=== PATIENT | male | born 1990 | race Caucasian/White ===

== ENCOUNTER 2017-10-10 17:40 | Inpatient (IN) | payer BC, OTHER ==
[~2017-10-10] VITALS: Ht 177.8 cm; Wt 75.7 kg
[2017-10-10 23:00] VITALS: BP 132/81
[2017-10-10] MEDS ORDERED: BUPRENORPHINE HCL 2 MG TAB.SUBL SL PRN (23:15)
[2017-10-10] MEDS ORDERED: MAG HYDROX/AL HYDROX/SIMETH 30 ML LIQUID UDC PO PRN (23:15)
[2017-10-10] MEDS ORDERED: MIRALAX 17 GM POWD.PACK PO PRN (23:15)
[2017-10-10] MEDS ORDERED: DICYCLOMINE HCL 20 MG TABLET PO PRN (23:15)
[2017-10-10] MEDS ORDERED: diphenhydrAMINE 50 MG CAPSULE PO PRN (23:15)
[2017-10-10] MEDS ORDERED: LORAZEPAM 2 MG/1 ML VIAL IM PRN (23:15)
[2017-10-10] MEDS ORDERED: ONDANSETRON ODT 4 MG TAB.RAPDIS SL PRN (23:15)
[2017-10-10] MEDS ORDERED: METHOCARBAMOL 750 MG TABLET PO PRN (23:15)
[2017-10-10] MEDS ORDERED: LORAZEPAM 1 MG TABLET PO PRN ×2 (23:15)
[2017-10-10] MEDS ORDERED: LOPERAMIDE HCL 2 MG CAPSULE PO PRN ×2 (23:15)
[2017-10-10] MEDS ORDERED: ONDANSETRON 4 MG/2 ML VIAL IM PRN (23:15)
[2017-10-10] MEDS ORDERED: HYDROXYZINE PAMOATE 25 MG CAPSULE PO PRN (23:15)
[2017-10-10] MEDS ORDERED: MAGNESIUM HYDROXIDE 30 ML LIQUID UDC PO PRN (23:15)
[2017-10-10 23:23] VITALS: BP 140/81
--- NOTE | 2017-10-10 23:30 | NUR ---
Pre-Assessment Note Pre-Assessment completed on the first floor, in intake office. Pt is a 26 year old male admitting to [facility] for Benzodiazepine and Opiate withdrawal. During assessment in intake, pt appears anxious, yet cooperative. VS: BP 132/81, Pulse 64, resp 16, SpO2 97% RA, temp 98. Pt educated on unit rules and policies: VS taken Q4H, kitchen only to be accessed via staff members and smoking privileges granted by nurse only. Pt also educated that any controlled substance brought upon admission will be wasted and not returned to pt upon discharge. Pt verbalized understanding of education. Admission process to be continued upon arrival to the unit.
[2017-10-10 23:40] LABS: *AMPHETAMINE, URINE POSITIVE (NEGATIVE); *BARBITURATE, URINE NEGATIVE (NEGATIVE); *CANNABINOID, URINE NEGATIVE (NEGATIVE); *COCCAINE, URINE NEGATIVE (NEGATIVE); *OPIATE, URINE POSITIVE (NEGATIVE); *PHENCYCLIDINE SCREEN,URINE NEGATIVE (NEGATIVE)
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
--- NOTE | 2017-10-11 00:10 | NUR ---
PRN Medication Administration Patient is verbalizing increased body aches and states "its probably from the drive out because I dont feel like I need detox medications yet." PRN Robaxin administered. Will continue to monitor.
[2017-10-11] MEDS ORDERED: CLONIDINE HCL 0.1 MG TABLET PO PRN (00:15)
[2017-10-11 00:40] VITALS: BP 137/89
--- NOTE | 2017-10-11 01:00 | NUR ---
PRN Medication Administration Patient is noted in bed sleeping. Breathing even and non labored. No signs of restlessness or discomfort noted. PRN Robaxin noted to be effective. Will continue to monitor.
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
[2017-10-11 04:00] VITALS: BP 122/83
--- NOTE | 2017-10-11 07:32 | NUR ---
End of Shift Patient is in bed sleeping. breathing even and non labored. Patient was admitted for opiate and benzo withdrawal. He will start a 5 day Subutex and 5 day Valium taper today. Skin is noted with an open scab to the right lower leg. Patient received PRN Robaxin for increased body aches with medication noted to be effective. Patient noted to sleep a total of 6 hours. Last noted COWS 5 CIWA 7. All needs attended to promptly. Will endorse to continue plan of care as ordered.
--- NOTE | 2017-10-11 07:45 | NUR ---
START OF SHIFT Pt is a 26 yr old male admitted on 10/10/17 for Opiate/Benzo withdrawal and is on 5 day Subutex and 5 day Valium taper starting today. Received report from nightclub manager nurse. Pt received Robaxin PRN during the night. Medication was effective. Last COWS score was 5 and CIWA score was 7 during the night. Pt slept for 6 hrs. Pt remains in bed sleeping with respirations even and unlabored. Skin is warm and moist to touch. P tis on fall precautions. Call light is within reach. Will continue to monitor.
[2017-10-11 08:00] VITALS: BP 130/63
--- NOTE | 2017-10-11 08:00 | NUR ---
COWS AND CIWA SCORE DEFERRED Pt is currently in bed sleeping with respirations even and unlabored. COWS and CIWA assessment if deferred at this time. Will continue to monitor.
[2017-10-11] MEDS ORDERED: LORAZEPAM 1 MG TABLET PO SCH (09:00)
[2017-10-11] MEDS: DIAZEPAM 10 MG TABLET PO SCH ×5 (09:00→22:00)
[2017-10-11] MEDS ORDERED: 5 DAY TAPER BUPRENORPHINE -SERENITY PROTOCOL SL PRN (09:00)
[2017-10-11] MEDS: MULTIVITAMINS,THERAPEUTIC TABLET PO SCH ×2 (09:00→10:26)
[2017-10-11] MEDS: BUPRENORPHINE HCL 2 MG TAB.SUBL SL SCH ×5 (09:00→22:00)
[2017-10-11] MEDS ORDERED: TUBERCULIN,PURIF.PROT.DERIV. 5 TU/0.1 ML TEST ID ONE (09:00)
[2017-10-11] MEDS ORDERED: 5 DAY TAPER VALIUM-SERENITY PROTOCOL PO PRN (09:00)
--- NOTE | 2017-10-11 10:25 | NUR ---
COWS AND CIWA ASSESSMENT Pt is c/o anxiety, agitation, chills, stuffy nose,abdominal cramping, yawning more than once, muscle aching, headache and sweats. Goose flesh is noted. COWS score is 15 and CIWA score is 13 at this time. Will continue to monitor.
[2017-10-11 12:00] VITALS: BP 136/90
[2017-10-11 13:01] LABS: BASOPHILS # (AUTO) 0.1 K/uL (0.0-8.0); BASOPHILS % (AUTO) 0.8 % (0.0-2.0); EOSINOPHILS # (AUTO) 0.2 K/uL (0.0-0.7); EOSINOPHILS % (AUTO) 3.2 % (0.0-7.0); HEMATOCRIT 43.3 % (36.7-47.1); HEMOGLOBIN 14.7 g/dL (12.5-16.3); LYMPHOCYTES # (AUTO) 1.2 K/uL (20.0-40.0); LYMPHOCYTES % (AUTO) 17.6 % (20.5-51.5); MEAN CORPUSCULAR HEMOGLOBIN 29.6 uug (23.8-33.4); MEAN CORPUSCULAR HGB CONC 34 g/dL (32.5-36.3); MEAN CORPUSCULAR VOLUME 87.1 fL (73.0-96.2); MONOCYTES # (AUTO) 0.4 K/uL (2.0-10.0); MONOCYTES % (AUTO) 5.3 % (0.0-11.0); NEUTROPHILS # (AUTO) 5.1 K/uL (1.8-8.9); NEUTROPHILS % (AUTO) 73.1 % (38.5-71.5); PLATELET COUNT (AUTO) 194 K/uL (152-348); RED BLOOD CELL COUNT(AUTO) 4.97 MIL/uL (4.06-5.63); WHITE BLOOD COUNT (AUTO) 6.9 K/uL (3.6-10.2)
[2017-10-11 13:13] LABS: ETHANOL < 3 MG/DL (0-0)
--- NOTE | 2017-10-11 13:39 | NUR ---
Client was prompted to attend twice daily group therapy sessions.
[2017-10-11 13:41] LABS: ALANINE AMINOTRANSFERASE 20 U/L (16-63); ALKALINE PHOSPHATASE 84 U/L (50-136); AMYLASE 49 U/L (25-115); ASPARTATE AMINOTRANSFERASE 13 U/L (15-37); BILIRUBIN,TOTAL 0.4 mg/dL (0.2-1.0); CARBON DIOXIDE 23 mmol/L (21-32); CHLORIDE 104 mmol/L (98-107); CREATININE 1.1 mg/dL (0.6-1.3); GLUCOSE 138 mg/dL (74-106); LIPASE 111 U/L (73-393); MAGNESIUM 1.8 mg/dL (1.8-2.4); TOTAL PROTEIN, SERUM 7.5 g/dL (6.4-8.2); UREA NITROGEN, BLOOD 14 mg/dL (7-18)
[2017-10-11] MEDS: GABAPENTIN 300 MG CAPSULE PO SCH ×2 (14:09→16:46)
[2017-10-11] MEDS: buPROPion XL 150 MG TAB.SR.24H PO SCH (14:09)
[2017-10-11 16:00] VITALS: BP 137/83
--- NOTE | 2017-10-11 19:00 | NUR ---
END OF SHIFT Pt is a 26 yr old male admitted on 10/10/17 for Opiate/Benzo withdrawal and is on 5 day Subutex and 5 day Valium taper, medication tia well. Pt has been cooperative with medication regimen and plan of care. Pt was observed attending group. Pt was c/o anxiety, agitation, muscle aches, headache, stuffy nose, chills/sweats and yawning. Pt was noted with fine tremors and goose flesh. No PRNs were given during the day. Last COWS score was 12 and CIWA score was 14 at 1600. Pt was encouraged increase fluid intake for hydration. Safety precautions observed. Call light is within reach. Endorsed to lead software development engineer nurse to continue with care.
--- NOTE | 2017-10-11 19:20 | NUR ---
Start of Shift Patient Received. Patient is noted in the activities room participating in a group meeting. Patient was started on a 5 day Subutex and 5 day Valium taper today. New orders for Seroquel for sleep and gabapentin TID. He was noted verbalizing increased lower back pain with Subutex noted to be effective in minimizing pain. He has been cooperative with group and social activities. Last noted COWS 12 and CIWA 14. All needs attended to promptly. Will continue plan of care as ordered.
[2017-10-11 20:30] VITALS: BP 140/91
[2017-10-11] MEDS: QUETIAPINE FUMARATE 200 MG TABLET PO SCH (22:00)
[2017-10-11] MEDS: METHOCARBAMOL 500 MG TABLET PO PRN (22:07)
--- NOTE | 2017-10-11 22:10 | NUR ---
PRN Medication Administration Patient verbalizing increased body aches. PRN Robaxin administered with routine medications. Will continue to monitor.
[2017-10-12 00:33] VITALS: BP 108/55
[2017-10-12 04:30] VITALS: BP 110/67
--- NOTE | 2017-10-12 07:04 | NUR ---
End of Shift Patient is in bed sleeping. Breathing even and non labored. Patient was started on a 5 day Subutex and 5 day Valium taper today. Patient verbalized increased lower back pain with PRN Robaxin administered and noted to be effective. Patient noted to sleep a total of 7 hours with last noted CIWA 16 and COWS 13. All needs attended to promptly. Will continue plan of care as ordered.
--- NOTE | 2017-10-12 07:34 | NUR ---
Start Of Shift: Patient is 26 yr old male who was admitted to [facility] on 8 for a medically supervised withdrawal from Opiates ( heroin IV), and benzodiazepines ( Xanax), he has been placed on a 5 day Subutex/ Valium taper and this is day 2. PRN medications given on PM shift : Robaxin for muscles aches/cramps, his last COWS was 13 and CIWA 16. he is in bed asleep at this time, breathing even and unlabored, side rails up x 2. Continue to follow MD plan of care and offer support as needed.
[2017-10-12 08:00] VITALS: BP 122/69
[2017-10-12] MEDS: METHOCARBAMOL 500 MG TABLET PO PRN ×2 (08:23→17:21)
[2017-10-12] MEDS: GABAPENTIN 300 MG CAPSULE PO SCH ×3 (08:23→17:21)
[2017-10-12] MEDS: IBUPROFEN 600 MG TABLET PO PRN ×2 (08:23→17:21)
[2017-10-12] MEDS: MULTIVITAMINS,THERAPEUTIC TABLET PO SCH (08:23)
[2017-10-12] MEDS: DIAZEPAM 10 MG TABLET PO SCH ×3 (08:23→21:04)
[2017-10-12] MEDS: BUPRENORPHINE HCL 2 MG TAB.SUBL SL SCH ×3 (08:24→21:04)
--- NOTE | 2017-10-12 08:25 | NUR ---
COWS 14 patients withdrawal symptoms include severe muscle aches/cramps, abdominal pain, diarrhea, lethargy, teary eyes, stuffy nose and decreased appetite
--- NOTE | 2017-10-12 08:30 | NUR ---
PRN Robaxin 750mg po and Motrin 600mg po given for reports of leg and back / muscle aches /spasms 10/09 will reassess
--- NOTE | 2017-10-12 08:30 | NUR ---
EMILIANO 16 Patient withdrawal symptoms include nasal stuffiness, teary eyes, decreased appetite, severe joint aches and lethargy
[2017-10-12] MEDS ORDERED: LORAZEPAM 1 MG TABLET PO SCH (09:00)
[2017-10-12] MEDS: buPROPion XL 150 MG TAB.SR.24H PO SCH (09:18)
--- NOTE | 2017-10-12 09:30 | NUR ---
PRN Reassess Patient states pain level is now 4/10 Robaxin 750mg po and Motrin 600mg po effective for relieving muscle aches and generalized pain continue to monitor
--- NOTE | 2017-10-12 11:35 | NUR ---
Nursing Note: Patient's urine drug screen came back positive for Amphetamines, asked Patient to clarify and he states that he was smoking Methamphetamine intermittently on a non daily basis, last smoked on 10/09/17.
[2017-10-12 12:00] VITALS: BP 123/60
--- NOTE | 2017-10-12 12:00 | NUR ---
COWS 14 CIWA 16 Patient's withdrawal symptoms include severe muscle aches, stuffy nose, chills, diaphoresis, lethargy, goose bumps and anxiety and agitation.
[2017-10-12 13:10] LABS: HEPATITIS B SURFACE AG Negative (Negative)
[2017-10-12 17:00] VITALS: BP 134/89
--- NOTE | 2017-10-12 17:20 | NUR ---
COWS 17 CIWA 16 Withdrawal symptoms include extreme anxiety and agitation, sweating, restless legs, stomach cramps, generalized body aches and lethargy.
--- NOTE | 2017-10-12 17:20 | NUR ---
PRN Medication Robaxin 750 MG PO and Motrin 600 MG PO given for reports of generalized body aches 10/09 will reassess and monitor
--- NOTE | 2017-10-12 18:20 | NUR ---
PRN Reassess Patient states pain level is now 4/10, Robaxin and Motrin effective, continue to monitor
--- NOTE | 2017-10-12 18:50 | NUR ---
End of Shift: Patient is a 26 yr old male who was admitted to [facility] on 10/10/17 for a medically supervised withdrawal from Opiates ( Heroin IV) and benzodiazepines ( Xanax). He has been placed on a 5 day Valium / Subutex taper and this is day 2 and he is tolerating it well. His withdrawal symptoms today have included severe generalized body aches, chills, diaphoresis, stuffy nose, teary eyes, high anxiety and agitation. Today he had a fluid intake of 1500 ML, 3 voids and 0 BM. His last COWS was 17 and CIWA 16 @ 1720. Continue to follow MD plan of care and offer support as needed. Endorsed to shift manager.
--- NOTE | 2017-10-12 19:25 | NUR ---
START OF SHIFT Patient is a 26-year-old male admitted on 10/10/17 for benzodiazepine and opiate withdrawal. Patient is currently on a 5-day Valium taper and 5-day Subutex taper, tolerating well. Patients last COWS was 17, last CIWA was 16. Per endorsement, patient received PRN Motrin x2 today and PRN Robaxin x2 today for generalized body aches. Upon assessment, patient is alert and oriented x4. Patient participates in group and is cooperative. Patient complains of lower back aches 7/10 on pain scale, stuffy nose, yawning and mild stomach cramps. Patient reports difficult sleeping and is requesting scheduled Seroquel later when he is ready to sleep. Patient is on fall and seizure precautions, denies history of seizure. Safety measures in place, side rails up x2, bed locked in low position, call light within reach. Will continue to monitor.
[2017-10-12 20:00] VITALS: BP 142/88
--- NOTE | 2017-10-12 20:00 | NUR ---
COWS/CIWA Patient has a COWS score of 18 and a CIWA score of 18. He is currently complaining of headache, lower backache, chills and sweats, stuffy nose, stomach cramps and mild nausea. Will administer appropriate meds; will continue to monitor.
[2017-10-12] MEDS: QUETIAPINE FUMARATE 200 MG TABLET PO SCH (21:00)
[2017-10-12] MEDS: ACETAMINOPHEN 325 MG TABLET PO PRN (21:04)
--- NOTE | 2017-10-12 21:04 | NUR ---
PRN TYLENOL Patient complains of lower backache 7/10 on pain scale. PRN Tylenol 650mg given PO. Safety measures in place, side rails up x2, bed locked in low position, call light within reach. Will monitor for effectiveness.
--- NOTE | 2017-10-12 22:04 | NUR ---
PRN TYLENOL REASSESSMENT Patient reports that lower backache is now 2/10 on pain scale. PRN Tylenol effective. Safety measures in place, call light within reach. Will continue to monitor.
[2017-10-13] VITALS: BP 110/57
--- NOTE | 2017-10-13 | NUR ---
COWS & CIWA DEFERRED COWS and CIWA deferred at this time due to patient sleeping; to be assessed and scored while patient is awake. Patient's BP is 110/57, HR 73, RR 16/min, respirations even and unlabored. Safety measures in place, side rails up x2, bed locked in low position, call light within reach. Will continue to monitor.
--- NOTE | 2017-10-13 01:30 | NUR ---
COWS & CIWA @ 0130 Patient is awake and requesting chips and a sandwich. Current COWS is 11, current CIWA is 13. Patient reports mild body aches and mild headache. He is still reporting anxiety but is less agitated and less restless. Safety measures in place, side rails up x2, bed locked in low position, call light within reach. Will continue to monitor.
--- NOTE | 2017-10-13 04:00 | NUR ---
VITALS REFUSED, COWS & CIWA DEFERRED Patient refused 4am vitals. COWS and CIWA deferred due to patient sleeping; to be assessed and scored while patient is awake. Safety measures in place, side rails up x2, bed locked in low position, call light within reach. Will continue to monitor.
--- NOTE | 2017-10-13 07:22 | NUR ---
END OF SHIFT Patient is a 26-year-old male admitted on 10/10/17 for benzodiazepine and opiate withdrawal. Patient is currently on a 5-day Valium taper and 5-day Subutex taper, today will be day 3; tolerating well. Patients last COWS was 11, last CIWA was 13. Patient received PRN Tylenol for lower backache; noted as effective. Patient slept for 7 hours, total intake of 1,006mL, void x2, stool x0. Patient is on fall and seizure precautions, denies history of seizure. Safety measures in place, side rails up x2, bed locked in low position, call light within reach. Will endorse to day shift.
[2017-10-13 08:00] VITALS: BP 129/84
--- NOTE | 2017-10-13 08:15 | NUR ---
START OF SHIFT: Received Pt A/O x 4. He presents with anxious mood and restricted affect. He c/o anxiety,body aches,fatigue,sweats,intermittent stomach cramps,stuffy nose and restlessness. He is fidgety. COWS 10 CIWA 12. Subutex/Valium taper in progress to manage s/s of w/d. Encouraged increased fluids to assist in facilitating detox process. Encouraged group attendance to improve coping skills and prevent relapse. Will continue to monitor and offer support.
[2017-10-13] MEDS: GABAPENTIN 300 MG CAPSULE PO SCH ×3 (08:22→16:48)
[2017-10-13] MEDS: DIAZEPAM 5 MG TABLET PO SCH ×4 (08:22→21:23)
[2017-10-13] MEDS: MULTIVITAMINS,THERAPEUTIC TABLET PO SCH (08:22)
[2017-10-13] MEDS: buPROPion XL 150 MG TAB.SR.24H PO SCH (08:22)
[2017-10-13] MEDS ORDERED: LORAZEPAM 1 MG TABLET PO SCH (09:00)
[2017-10-13] MEDS ORDERED: BUPRENORPHINE HCL 2 MG TAB.SUBL SL SCH (09:00)
[2017-10-13 12:00] VITALS: BP 146/90
--- NOTE | 2017-10-13 12:10 | NUR ---
COWS 10 CIWA 12 Pt presents anxious and c/o restlessness,anxiety,sweats,intermittent stomach cramps. body aches and irritability. He states he is sensitive to sound and light.
[2017-10-13] MEDS: BUPRENORPHINE HCL 2 MG TAB.SUBL SL SCH ×2 (14:14→21:23)
[2017-10-13 16:00] VITALS: BP 145/90
--- NOTE | 2017-10-13 16:15 | NUR ---
COWS 12 CIWA 14 He is restless and fidgety with clammy skin. He reports intermittent sweats ,chills and stomach cramps. He c/o anxiety,body aches,and irritability.
--- NOTE | 2017-10-13 19:19 | NUR ---
END OF SHIFT: Pt continues on Valium/Subutex taper. Last CIWA 14 COWS 12. He reports anxiety,sweats,body aches,fatigue and irritability. He states detox meds are effective. He attended groups and interacted with peers. He was compliant with increased fluids. Will pass shift report to oncoming night nurse.
--- NOTE | 2017-10-13 19:30 | NUR ---
Start of Shift Pt admitted 10/10/17 for medically managed withdrawal from Heroin and Xanax on a 5 day Subutex and 5 day Valium taper. Pt is a full code, with NKA's and on a regular diet. Pt found in room, appears disheveled with uncombed hair, odor in room, flat affect with loud speech, avoidant eye contact, hand tremors. Pt appears depressed/sad/worried. Frequent smoking breaks major coping/defense mechanism. Pt presents with c/o back pain 11/09, H/A, anxiety and agitation, yawning, stuffy nose. Denies SI/HI, A/V/T hallucinations. Pt educated about stress management techniques, encouraged to clean room and perform PM ADL's, personal care. Full safety measures remain in place (fall/seizure). Will monitor for duration of shift for any s/sx's of withdrawal or distress, and promptly attend to.
[2017-10-13 20:00] VITALS: BP 160/68
--- NOTE | 2017-10-13 20:00 | NUR ---
COWS/CIWA Assessment COWS score increase of 2, from 12 at 1600 to 14 at 2000 hours. increase due to increases in scores of "sweating" and "yawning". All other scores remain unchanged, with HR > 100, restlessness, pupils normal size, B/A's, some nasal congestion/tearing, stomach cramps, hand tremors to touch, anxiety apparent, and no piloerection present. CIWA score 18 at 2000 hours, increase of 4 from score of 14 at 1600 hours. Differences are increase in nausea/stomach cramping, sweats, anxiety. Other factors including tremors (2), restlessness (4), A/V/T hallucinations (1) remain unchanged from 1600.
[2017-10-13] MEDS: METHOCARBAMOL 500 MG TABLET PO PRN (21:21)
--- NOTE | 2017-10-13 21:21 | NUR ---
PRN Med Robaxin 750mg PO given for back pain, 11/09. HR 106, BP 160/68, SaO2 94%. Will continue to monitor and reassess in 1 hour.
[2017-10-13] MEDS: QUETIAPINE FUMARATE 200 MG TABLET PO SCH (21:22)
[2017-10-13] MEDS: CLONIDINE HCL 0.1 MG TABLET PO PRN (21:22)
--- NOTE | 2017-10-13 21:22 | NUR ---
Catepres 0.1mg PO given for anxiety, BP 160/68. Will continue to monitor and reassess in 1 hour
--- NOTE | 2017-10-13 22:21 | NUR ---
PRN Reassessment Robaxin 750mg PO given 1 hour prior for back pain, 11/09. At present pt is sleeping. Med effective.
--- NOTE | 2017-10-13 22:22 | NUR ---
PRN Reassessment Catepres 0.1mg PO given 1 hour prior for anxiety/BP 160/68. At present pt sleeping, arousable to voice and reporting decreased anxiety. BP 148/65. Med effective. Will continue to monitor, promptly attending to all s/sx's w/d or distress.
--- NOTE | 2017-10-14 | NUR ---
VS's COWS/CIWA Deferred Midnight VS's, COWS and CIWA deferred r/t pt sleeping/refused. RR 14, even and nonlabored. Will continue to monitor, promptly attending to all s/sx's w/d or distress.
[2017-10-14 04:00] VITALS: BP 109/49
--- NOTE | 2017-10-14 04:00 | NUR ---
COWS/CIWA Deferred 0400 VS's obtained/stable, COWS and CIWA deferred r/t pt sleeping/refused. Will continue to monitor, promptly attending to all s/sx's w/d or distress.
--- NOTE | 2017-10-14 07:14 | NUR ---
Start of Shift Endorsement given to day nurse. Pt admitted 10/10/17 for medically managed withdrawal from Heroin and Xanax on a 5 day Subutex and 5 day Valium taper. Pt is a full code, with NKA's and on a regular diet. Pt received Catepres 0.1mg PO and Robaxin 750mg PO as PRN's for the shift. Pt slept for 9 hours, with 800 mls intake and 1 voids. Last COWS was 14, CIWA 18 at 2000 hours. Mood remains depressed, affect flat with avoidant eye contact. Room remains disheveled and odorous, pt did not straighten, and personal hygiene remains poor with odorous breath, flushed face and dirty fingernails, remains in dirty clothing and unshaven. Full safety measures remain in place.
[2017-10-14 08:00] VITALS: BP 104/60
--- NOTE | 2017-10-14 08:20 | NUR ---
START OF SHIFT: Received Pt. laying in bed with eyes closed asleep. Respirations even and unlabored. Bed locked and low. Call pritchard in reach.
[2017-10-14] MEDS ORDERED: LORAZEPAM 1 MG TABLET PO SCH (09:00)
[2017-10-14] MEDS: BUPRENORPHINE HCL 2 MG TAB.SUBL SL SCH ×3 (10:30→21:09)
[2017-10-14] MEDS: DIAZEPAM 5 MG TABLET PO SCH ×3 (10:30→21:08)
[2017-10-14] MEDS: MULTIVITAMINS,THERAPEUTIC TABLET PO SCH (10:30)
[2017-10-14] MEDS: GABAPENTIN 300 MG CAPSULE PO SCH ×3 (10:30→17:00)
--- NOTE | 2017-10-14 10:35 | NUR ---
Pt is A/O x 4. He presents with blunted affect and subdued mood. He c/o anxiety,body aches,fatigue,sweats,intermittent stomach cramps,stuffy nose and restlessness. He is fidgety. COWS 11 CIWA 13 Subutex/Valium taper in progress to manage s/s of w/d. Late medication administered. MD made aware. Pt Encouraged increased fluids to assist in facilitating detox process. Encouraged group attendance to improve coping skills and prevent relapse. Will continue to monitor and offer support.
[2017-10-14] MEDS: buPROPion XL 150 MG TAB.SR.24H PO SCH (11:10)
[2017-10-14 12:00] VITALS: BP 120/72
--- NOTE | 2017-10-14 12:16 | NUR ---
COWS 10 CIWA 13 fine tremors observed. He is fidgety./ He reports anxiety,body aches,sweats and chills intermittently. He reports restlessness.
[2017-10-14 16:00] VITALS: BP 142/85
--- NOTE | 2017-10-14 16:00 | NUR ---
COWS 11 CIWA 13 fine tremors observed. He is fidgety. He reports anxiety,agitation, body aches,sweats and chills intermittently.
--- NOTE | 2017-10-14 18:58 | NUR ---
END OF SHIFT: Pt continues on Valium/Subutex taper. Last CIWA 11 COWS 13. He reports anxiety,body aches,fatigue and irritability. He presents with irritable mood. He attended groups and interacted with peers. He was compliant with increased fluids. Will pass shift report to oncoming night nurse.
--- NOTE | 2017-10-14 19:30 | NUR ---
Start of Shift Pt admitted 10/10/17 for medically managed withdrawal from Heroin and Xanax. Pt listed as a full code, with NKAs and on a regular diet. Pt is on a 5 day Subutex and a 5 day Valium taper. Pt found disheveled, with uncombed hair. Room is in disarray and odorous. Affect is flat and blunt, mood depressed and angry, blocking. Irritable and uncooperative. Report from day nurse of Pt almost leaving AMA after message from girlfriend conveyed to him. Pt refusing to talk at moment, but c/o lower back pain made. Pt agitated and fidgety. Full safety measures remain in place with bed in lowest position, locked with both side rails up x 2, call pritchard within reach and frequent rounding. Will monitor pt for duration of shift for any s/sxs of distress or w/d and promptly attend.
[2017-10-14 20:00] VITALS: BP 132/89
--- NOTE | 2017-10-14 20:00 | NUR ---
COWS/CIWA Assessment COWS 14, amb sweats, face flushed, restlessness, pupils larger than normal, B/A's, nasal congestion, yawning, and anxiety CIWA 14, amb hand tremors, nausea, diaphoresis, anxiety and agitation, H/A,
[2017-10-14] MEDS: CLONIDINE HCL 0.1 MG TABLET PO PRN (21:08)
[2017-10-14] MEDS: METHOCARBAMOL 500 MG TABLET PO PRN (21:08)
--- NOTE | 2017-10-14 21:08 | NUR ---
PRN Meds Clonidine 0.1mg PO for anxiety and Robaxin 750mg PO for lower back pain 7/10 given. Will continue to monitor, and reassess in 1 hour.
[2017-10-14] MEDS: QUETIAPINE FUMARATE 200 MG TABLET PO SCH (21:09)
--- NOTE | 2017-10-14 22:08 | NUR ---
PRN Reassessment Clonidine 0.1mg PO for anxiety and Robaxin 750mg PO for lower back pain 7/10 given 1 hour prior. At present pt sleeping, RR 14, even and nonlabored. Meds effective.
[2017-10-15] VITALS: BP 109/64
--- NOTE | 2017-10-15 | NUR ---
Midnight Rounds VS's obtained/stable, COWS and CIWA deferred r/t pt sleeping/refused. RR 16, even and nonlabored. Will continue to monitor for all s/sx's distress or w/d, and promptly attend.
--- NOTE | 2017-10-15 04:00 | NUR ---
VS's, COWS/CIWA Deferred 0400 VS's, COWS/CIWA deferred r/t pt sleeping/refused. RR 14, even and nonlabored. Will continue to monitor and promptly attend to all s/sx's w/d or distress.
--- NOTE | 2017-10-15 07:18 | NUR ---
End of Shift Endorsement given to [facility] day nurse. Pt admitted 10/10/17 for medically managed withdrawal from Opiates and Benzodiazepines remains on 5 day Subutex and Valium tapers started . Pt slept for 10 hours, with 1535 mls intake and 3 voids during shift. Pt remains irritable, labile at times. Report from prior nurse including news he received from girlfriend she was not in detox herself, pt refuses to discuss topic. Pt stating dr was supposed to increase his Subutex to 4mg for evening meds. Pt also observed by nurse and [employer] during evening meds to watch for cheeking of any medications-none noted. Affect worried/agitated with racing thoughts, anxious. Expression preoccupied and angry with avoidant eye contact. Garbage around room, food on bed, pt remains disheveled with dirty clothes. pt encouraged to straighten with no results. Lower back pain with w/d s/sxs consistent. Full safety measures remain in place.
--- NOTE | 2017-10-15 07:30 | NUR ---
Start of Shift Patient is a 26 yr old male who was admitted to [facility] on 10/10/17 for a medically supervised withdrawal from Opiates ( Heroin) and benzodiazepines (Xanax), he continue on a 5 day Subutex/Valium taper which has been well tolerated. PRN meds given on PM shift : Clonidine and Robaxin. He slept for 10 + hours and is currently asleep in bed at this time, breathing even and unlabored, side rails up x2. His last COWS was 14 and CIWA 14. Continue to follow MD plan of care and offer support as needed.
[2017-10-15 08:00] VITALS: BP 111/52
[2017-10-15] MEDS ORDERED: BUPRENORPHINE HCL 2 MG TAB.SUBL SL SCH (09:00)
[2017-10-15] MEDS ORDERED: LORAZEPAM 1 MG TABLET PO SCH (09:00)
--- NOTE | 2017-10-15 09:00 | NUR ---
COWS 11 /CIWA 13 Patients withdrawal symptoms include diaphoresis, chills, runny nose, lethargy, generalized body aches/spasms, bilateral hand tremors, anxiety and agitation.
--- NOTE | 2017-10-15 09:00 | NUR ---
PRN Robaxin/Motrin Robaxin 750 mg po and Motrin 600 MG PO given for reports of severe generalized body aches and cramps 7/10 pain level. will reassess
[2017-10-15] MEDS: GABAPENTIN 300 MG CAPSULE PO SCH ×3 (09:09→17:02)
[2017-10-15] MEDS: buPROPion XL 150 MG TAB.SR.24H PO SCH (09:09)
[2017-10-15] MEDS: MULTIVITAMINS,THERAPEUTIC TABLET PO SCH (09:09)
[2017-10-15] MEDS: METHOCARBAMOL 500 MG TABLET PO PRN ×2 (09:09→17:02)
[2017-10-15] MEDS: DIAZEPAM 5 MG TABLET PO SCH ×2 (09:09→20:54)
[2017-10-15] MEDS: IBUPROFEN 600 MG TABLET PO PRN ×2 (09:10→20:54)
--- NOTE | 2017-10-15 10:00 | NUR ---
PRN Reassess Patient states Medications were effective in reducing his body aches pain to 4/10 will continue to monitor
--- NOTE | 2017-10-15 11:56 | NUR ---
COWS 12/ CIWA 14 Patient presents with agitation, restlessness, restless legs, severe body aches and irritability.
[2017-10-15 12:00] VITALS: BP 124/72
[2017-10-15] MEDS: CLONIDINE HCL 0.1 MG TABLET PO PRN (13:29)
[2017-10-15] MEDS: ACETAMINOPHEN 325 MG TABLET PO PRN (13:29)
--- NOTE | 2017-10-15 13:30 | NUR ---
PRN Tylenol/Clonidine Tylenol 650 MG PO given for complaints of back pain 09/09 Clonidine 0.1MG Po given for anxiety, agitation and restlessness. Will continue to monitor
--- NOTE | 2017-10-15 14:30 | NUR ---
PRN Reassess patient states he feels less anxious, clonidine effective Tylenol mildly effective on joint pain, pain level 4/10 will continue to assess and monitor
--- NOTE | 2017-10-15 15:55 | NUR ---
14 Patient presents with withdrawal symptoms that include severe joint and muscle aches, stuffy nose, increased agitation and irritability, restlessness, diaphoresis and chills.
[2017-10-15 16:00] VITALS: BP 124/73
--- NOTE | 2017-10-15 17:00 | NUR ---
PRN Robaxin Robaxin 750 MG PO given for back pain 10/09, will reassess
--- NOTE | 2017-10-15 17:49 | NUR ---
Spoke with client about staying for the full course of treatment rather than leave early. After some discussion he agreed to leave at the planned discharge time. Also, spoke with client prompting him to attend groups twice daily while he is here.
--- NOTE | 2017-10-15 18:57 | NUR ---
End Of Shift : Patient is a 26 yr old male who was admitted to [facility] on 10/10/17 for a medically supervised withdrawal from opiates ( heroin IV) and Benzodiazepines ( Xanax). He is on a 5 day Subutex/ 5 day Valium taper and this is day 5. PRN medications required on this shift : Robaxin x2, Motrin, Tylenol and Clonidine. He presents with a flat irritable affect and his withdrawal symptoms include severe joint aches, runny nose, abdominal cramps, restlessness, lethargy , diaphoresis and chills. He has attended groups today and is interacting with his peers. He had a fluid intake of 1700 ML, 2 Voids and 0 BM. Last COWS 12 and CIWA 14 @ 1600. Continue to follow MD plan of care and offer support as needed. Endorsed to mold shifter.
--- NOTE | 2017-10-15 19:30 | NUR ---
START OF SHIFT NOTE RECEIVED REPORT FROM DAY SHIFT NURSE. PATIENT IS A 26 YEAR OLD MALE ADMITTED FOR OPIATE AND BENZO WITHDRAWAL. PATIENT IS ON 5TH DAY OF HIS 5 DAY SUBUTEX AND 5 DAY VALIUM TAPER. PATIENT WAS C/O BODY ACHES DURING THE DAY. PATIENT WAS GIVEN PRN ROBAXIN X 2, MOTRIN , CLONIDINE AND TYLENOL. LAST COWS 12 AND CIWA 14. PATIENT IN THE GROUP AT THIS TIME. BED UNMADE AND CLOTHES THROWN ON FLOOR . SAFETY MEASURES IN PLACE. WILL CONTINUE TO MONITOR
[2017-10-15 20:00] VITALS: BP 138/88
--- NOTE | 2017-10-15 20:00 | NUR ---
COWS AND CIWA ASSESSMENT PATIENT PRESENTS WITH FLAT AFFECT, EYE AVOIDANT, DISHEVELED, MODERATE ANXIETY, RESTLESS, FIDGETY , IRRITABLE, SWEATS, DIFFICULTY CONCENTRATING, EASILY DISTRACTED AND WAS C/O LOWER BACK PAIN AND HEADACHE. COWS 11 AND CIWA 11.
[2017-10-15] MEDS: QUETIAPINE FUMARATE 200 MG TABLET PO SCH (20:54)
--- NOTE | 2017-10-15 20:54 | NUR ---
PRN MOTRIN ADMINISTRATION PATIENT C/O LOWER BACK PAIN. WILL MONITOR FOR EFFECTIVENESS
--- NOTE | 2017-10-15 21:54 | NUR ---
PRN MOTRIN RE-ASSESSMENT PATIENT WALKING ALONG THE HALLWAY AND SOCIALIZING WITH OTHER PATIENT. PATIENT STATES MOTRIN HELPFUL, PAIN TOLERABLE AT THIS TIME. WILL CONTINUE TO MONITOR.
--- NOTE | 2017-10-16 07:08 | NUR ---
END OF SHIFT NOTE PATIENT SLEPT 6 HOURS. FLUID INTAKE 710 ML. VOIDED X 2. NO BM. PATIENT CONTINUE ON SUBUTEX AND VALIUM TAPER, TOLERATED WELL AND NO ADVERSE REACTION PATIENT PRESENTS WITH FLAT AFFECT, EYE AVOIDANT, DISHEVELED, MODERATE ANXIETY, RESTLESS, FIDGETY , IRRITABLE, DIFFICULTY CONCENTRATING, EASILY DISTRACTED AND WAS C/O LOWER BACK PAIN AND HEADACHE. PATIENT WAS GIVEN PRN MOTRIN FOR PAIN ON LOWER BACK, EFFECTIVE. PATIENT COMPLIANT WITH MEDICATION AND TREATMENT PLAN. PATIENT SOCIALIZING WITH OTHER PATIENT . SEEN BY DR. CRAIG DURING SHIFT WITH NO NEW ORDER. SAFETY MEASURES IN PLACE. WILL CONTINUE TO MONITOR. LAST COWS AND CI.
[2017-10-16 08:00] VITALS: BP 139/82
--- NOTE | 2017-10-16 08:20 | NUR ---
START OF SHIFT: Pt is A/O x 4. He presents with blunted affect and apathetic mood. He c/o anxiety,body aches,fatigue and restlessness. He is fidgety. COWS 8 CIWA 8 Subutex/Valium taper completed yesterday. Pt Encouraged increased fluids to assist in facilitating detox process. Encouraged group attendance to improve coping skills and prevent relapse. Will continue to monitor and offer support.
[2017-10-16] MEDS: GABAPENTIN 300 MG CAPSULE PO SCH ×3 (08:28→16:55)
[2017-10-16] MEDS: MULTIVITAMINS,THERAPEUTIC TABLET PO SCH (08:28)
[2017-10-16] MEDS: buPROPion XL 150 MG TAB.SR.24H PO SCH (10:03)
[2017-10-16 12:00] VITALS: BP 136/82
--- NOTE | 2017-10-16 12:32 | NUR ---
COWS 8 CIWA 8 . Pt c/o mild body aches,intermittent anxiety,restlessness and low energy.
--- NOTE | 2017-10-16 14:20 | NUR ---
Client was prompted to attend twice daily group counseling sessions.
[2017-10-16 16:00] VITALS: BP 145/93
--- NOTE | 2017-10-16 16:05 | NUR ---
COWS 7 CIWA 8 Pt c/o body aches,anxiety,sweats and fatigue.
--- NOTE | 2017-10-16 19:10 | NUR ---
END OF SHIFT: Pt completed Valium/Subutex taper and discharge scheduled for tomorrow in AM. Last CIWA 8 COWS 7. He reports anxiety,body aches and fatigue. He attended groups and interacted with peers. He was compliant with increased fluids. Will pass shift report to oncoming night nurse
--- NOTE | 2017-10-16 19:30 | NUR ---
START OF SHIFT NOTE RECEIVED REPORT FROM DAY SHIFT NURSE. PATIENT IS A 26 YEAR OLD MALE ADMITTED FOR OPIATE/BENZO WITHDRAWAL. PATIENT COMPLETED 5 DAY SUBUTEX AND 5 DAY VALIUM TAPER, TOLERATED WELL AND NO ADVERSE REACTION. PATIENT IS MEDICALLY CLEARED TO BE DISCHARGE TOMORROW. PATIENT DID NOT REQUIRE PRN MEDICATION. LAST COWS 7 AND CIWA 8. PATIENT IN GROUP AT THIS TIME. SAFETY MEASURES IN PLACE. CALL LIGHT IN REACH. WILL CONTINUE TO MONITOR.
[2017-10-16 20:00] VITALS: BP 143/87
--- NOTE | 2017-10-16 20:00 | NUR ---
COWS AND CIWA ASSESSMENT PATIENT PRESENTS WITH FLAT AFFECT, DEPRESSED MOOD, ANXIETY, RESTLESSNESS, FIDGETY, UNABLE TO SIT STILL, IRRITABLE AND SWEATING. COWS 7 AND CIWA 7.
[2017-10-16] MEDS: QUETIAPINE FUMARATE 200 MG TABLET PO SCH (21:15)
[2017-10-16] MEDS ORDERED: METH500T6 PO (22:05)
[2017-10-16] MEDS ORDERED: QUET200T PO (22:05)
[2017-10-16] MEDS ORDERED: GABA-534 PO (22:05)
[2017-10-16] MEDS ORDERED: CLON0.1T14 PO (22:05)
[2017-10-16] MEDS ORDERED: BUPR-96 PO (22:05)
[2017-10-16] MEDS ORDERED: IBUP-1955 PO (22:05)
--- NOTE | 2017-10-17 | NUR ---
COWS AND CIWA DEFERRED PATIENT SLEEPING. RESPIRATION EVEN AND UNLABORED. SAFETY MEASURES IN PLACE . VS REFUSED . CALL LIGHT IN REACH. WILL CONTINUE TO MONITOR
--- NOTE | 2017-10-17 04:00 | NUR ---
COWS AND CIWA DEFERRED PATIENT SLEEPING. RESPIRATION EVEN AND UNLABORED. SAFETY MEASURES IN PLACE . VS REFUSED . CALL LIGHT IN REACH. WILL CONTINUE TO MONITOR
--- NOTE | 2017-10-17 07:17 | NUR ---
END OF SHIFT NOTE PATIENT SLEPT 7 HOURS. FLUID INTAKE 591 ML. VOIDED X 2. NO BM . PATIENT COMPLETED 5 DAY SUBUTEX AND 5 DAY VALIUM TAPER, TOLERATED WELL AND NO ADVERSE REACTION. PATIENT IS MEDICALLY CLEARED TO BE DISCHARGE TODAY. PATIENT DID NOT REQUIRE PRN MEDICATION. PATIENT COMPLIANT WITH MEDICATION AND TREATMENT PLAN. PATIENT ATTENDED GROUPS. LAST COWS 7 AND CIWA 7. SAFETY MEASURES IN PLACE. CALL LIGHT IN REACH. WILL CONTINUE TO MONITOR.
[2017-10-17 08:00] VITALS: BP 137/76
--- NOTE | 2017-10-17 08:07 | NUR ---
START OF SHIFT: Pt is A/O x 4. He presents with blunted affect and apathetic mood. He c/o mild anxiety and body aches. COWS 8 CIWA 4 Subutex/Valium taper completed. Pt expressed motivation toward recovery. He is scheduled for discharge to [facility] this am. Will continue with discharge plan.
[2017-10-17] MEDS: MULTIVITAMINS,THERAPEUTIC TABLET PO SCH (08:32)
[2017-10-17] MEDS: GABAPENTIN 300 MG CAPSULE PO SCH (08:32)
[2017-10-17] MEDS: buPROPion XL 150 MG TAB.SR.24H PO SCH (08:32)
--- NOTE | 2017-10-17 09:55 | NUR ---
DISCHARGE: PT IS A/O X 4. HE DENIES S/I AND H/I. HE STATES HE FEELS ENTHUSIASTIC TOWARD RECOVERY. BELONGINGS RETURNED. EDUCATED PT ON DISCHARGE MEDS AND INSTRUCTIONS. PT EXPRESSED VERBAL UNDERSTANDING OF EDUCATION . OR ASSISTANT ESCORTED PT TO [facility] WHERE HE WAS TRANSPORTED BY [employer] [place] TO [facility] TO CHANGE AT 0934.
== END 2017-10-17 09:34 | disposition other institution (70) | DRG 895 ==
LOC: SRC 22:01
PROVIDERS: ADMIT Family Medicine Addiction Medicine; ATTEND Family Medicine Addiction Medicine
PROC: HZ2ZZZZ Detoxification Services for Substance Abuse Treatment (ICD-10-PCS; principal; 2017-10-10)
PROC: HZ41ZZZ Group Counseling for Substance Abuse Treatment, Behavioral (ICD-10-PCS; 2017-10-11)
DX: F10.239 Alcohol dependence with withdrawal, unspecified (principal); F31.30 Bipolar disorder, current episode depressed, mild or moderate severity, unspecified; F15.20 Other stimulant dependence, uncomplicated; F11.23 Opioid dependence with withdrawal; Y90.0 Blood alcohol level of less than 20 mg/100 ml; F17.210 Nicotine dependence, cigarettes, uncomplicated; F13.239 Sedative, hypnotic or anxiolytic dependence with withdrawal, unspecified; Z79.899 Other long term (current) drug therapy; M54.5 Low back pain; S74 Injury of nerves at hip and thigh level; Y93.18 Activity, surfing, windsurfing and boogie boarding; F41.1 Generalized anxiety disorder; F12.20 Cannabis dependence, uncomplicated; G89.21 Chronic pain due to trauma
CPT/HCPCS: 36415; 70030-TC; 80307; 80324; 80361; 83690; 83735; 84443; 85025; 86580; 86592; 86705; 86803; 87340; 87806; G0480